=== PATIENT | female | born 1995 ===

== ENCOUNTER → 2024-03-30 16:53 | Outpatient (ROUT) | payer BC, SELFPAY ==
[2024-03-30 17:38] LABS: Influenza A - CEPHEID Flu A NEGATIVE (NEGATIVE); Influenza B - CEPHEID Flu B NEGATIVE (NEGATIVE); Respiratory Syncytial Virus Negative (Negative)
[2024-03-30 17:39] LABS: COVID-19 CEPHEID 4-PLEX PCR POSITIVE (Negative)
== END ==
PROVIDERS: Visit Provider Family Medicine
DX: R05.1 Acute cough (principal); R50.9 Fever, unspecified
CPT/HCPCS: 0241U